=== PATIENT | male | born 1995 | race Caucasian/White ===

== ENCOUNTER 2016-10-09 19:57 | Emergency (ER) | payer SELFPAY | END 2016-10-09 21:23 | disposition home or self-care (01) | LOC: ER1 19:57 | DX: L02.413 Cutaneous abscess of right upper limb (principal); L03.113 Cellulitis of right upper limb | CPT/HCPCS: 99283 ==

== ENCOUNTER 2022-02-24 16:46 | Emergency (ER) | payer SELFPAY | END 2022-02-24 17:27 | disposition left against medical advice (07) | LOC: ER1 16:46 | DX: Z53.21 Procedure and treatment not carried out due to patient leaving prior to being seen by health care provider (principal) ==